=== PATIENT | male | born 2000 | race Caucasian/White ===

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

== ENCOUNTER 2022-04-18 21:03 | Emergency (ER) | payer OTHER ==
[~2022-04-18] VITALS: Ht 175.3 cm; Wt 70.3 kg
[~2022-04-18 21:03] MED LIST changes: +GENTAMICIN SULF15 G2 TOP
[2022-04-18] MEDS ORDERED: BACITRACIN28.4 GM TOP (21:49)
[2022-04-18] MEDS ORDERED: LEVOFLOXACIN500 MG PO (21:49)
== END 2022-04-18 22:20 | disposition home or self-care (01) ==
LOC: ED 21:03
PROC: 2W2MX4Z Dressing of Left Lower Extremity using Bandage (ICD-10-PCS; principal; 2022-04-18)
DX: T24.232A Burn of second degree of left lower leg, initial encounter (principal); T31.0 Burns involving less than 10% of body surface; E03.9 Hypothyroidism, unspecified; Z23 Encounter for immunization; Z79.899 Other long term (current) drug therapy; X08.8XXA Exposure to other specified smoke, fire and flames, initial encounter
CPT/HCPCS: 90471; 90715; 99283

== ENCOUNTER 2022-04-21 10:55 | Emergency (ER) | payer OTHER ==
[~2022-04-21] VITALS: Ht 180.3 cm; Wt 68.3 kg
[~2022-04-21 10:55] MED LIST changes: +BACITRACIN28.4 GM TOP; +LEVOFLOXACIN500 MG PO
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
== END 2022-04-21 15:07 | disposition home or self-care (01) ==
LOC: ED 10:55
DX: S09.90XA Unspecified injury of head, initial encounter (principal); S16.1XXA Strain of muscle, fascia and tendon at neck level, initial encounter; E03.9 Hypothyroidism, unspecified; Z79.899 Other long term (current) drug therapy; V89.2XXA Person injured in unspecified motor-vehicle accident, traffic, initial encounter
CPT/HCPCS: 70450; 72125; 99284-25

== ENCOUNTER 2023-01-26 08:27 | Emergency (ER) | payer OTHER ==
[~2023-01-26] VITALS: Ht 180.3 cm; Wt 74.8 kg
[2023-01-26] MEDS ORDERED: ONDANSETRON ODT4 MG PO (09:03)
[2023-01-26 09:18] VITALS: BP 118/88
== END 2023-01-26 09:17 | disposition home or self-care (01) ==
LOC: ED 08:27
DX: S06.0X0A Concussion without loss of consciousness, initial encounter (principal); V89.2XXA Person injured in unspecified motor-vehicle accident, traffic, initial encounter
CPT/HCPCS: 99283; A9270

== ENCOUNTER 2024-03-19 14:30 | Emergency (ER) | payer OTHER ==
[~2024-03-19] VITALS: Ht 180.3 cm; Wt 67.6 kg
[~2024-03-19 14:30] MED LIST changes: +ONDANSETRON ODT4 MG PO
[2024-03-19 15:32] LABS: BASOPHILS 0.7 % (0-2); EOSINOPHILS 3.6 % (0-6); HEMATOCRIT 42.2 % (35.0-50.0); HEMOGLOBIN 14.1 g/dL (12.0-18.0); LYMPHOCYTES 24.2 % (24-44); MCH 28.4 (27-36); MCHC 33.5 g/dl (30-36); MCV 84.8 fl (81-99); NEUTROPHILS 64.5 % (39-80); PLATELET COUNT 232 K/uL (140-440); RBC 4.97 M/ul (4.3-5.7); RDW 13.3 (10.5-15.0)
[2024-03-19 15:49] LABS: ALBUMIN 3.8 g/dL (3.4-5.0); ALBUMIN/GLOBULIN RATIO 1.15 (1.1-2.4); ALKALINE PHOSPHATASE 78 U/L (46-116); ALT (SGPT) 12 U/L (14-59); AST (SGOT) 10 U/L (15-37); BILIRUBIN, TOTAL 0.6 ng/dL (0.2-1.0); BUN/CREATININE RATIO 11.95 (6.0-28.6); CALCIUM 8.9 mg/dL (8.5-10.1); CARBON DIOXIDE 27 mmol/L (21-32); CHLORIDE 105 mmol/L (98-107); CREATININE, SERUM 0.92 mg/dL (0.70-1.30); GLOMERULAR FILTRATION RATE,EST 121 mL/min (>60); PROTEIN, TOTAL 7.1 g/dL (6.4-8.2); UREA NITROGEN 11 mg/dL (7-18)
[2024-03-19 16:16] VITALS: BP 116/69
--- NOTE | 2024-03-20 16:40 | EKG ---
[facility] [address] [facility] [place] [address] Signed Sinus rhythm with marked sinus arrhythmia Incomplete right bundle branch block Possible Right ventricular hypertrophy Abnormal ECG No previous ECGs available Confirmed by Fernandez Gutiérrez MD ([id number]) on 03/20/2024 4:39:59 PM Electronically Signed By: FERNANDEZ GUTIÉRREZ MD 03/20/24 1640 PATIENT NAME: BILL LAY JAABRI Electrocardiogram DATE OF : [birth year] PHYSICIAN: FERNANDEZ GUTIÉRREZ MD REPORT #: [id number] REPORT IS CONFIDENTIAL AND NOT TO BE RELEASED WITHOUT AUTHORIZATION
== END 2024-03-19 16:16 | disposition home or self-care (01) ==
LOC: ED 14:30
PROVIDERS: Emergency Medicine
DX: R07.89 Other chest pain (principal); E03.9 Hypothyroidism, unspecified; Z79.890 Hormone replacement therapy
CPT/HCPCS: 36415; 71045; 80053; 84484; 85025; 85379; 93005; 93010; 99285-25

== ENCOUNTER 2024-04-10 09:46 | Emergency (ER) | payer OTHER ==
[~2024-04-10] VITALS: Ht 180.3 cm; Wt 67.6 kg
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
[2024-04-10 10:34] VITALS: BP 125/75
== END 2024-04-10 10:34 | disposition home or self-care (01) ==
LOC: ED 09:46
DX: S67.22XA Crushing injury of left hand, initial encounter (principal); W23.0XXA Caught, crushed, jammed, or pinched between moving objects, initial encounter; E03.9 Hypothyroidism, unspecified; Z79.890 Hormone replacement therapy
CPT/HCPCS: 73130; 99283

== ENCOUNTER 2024-04-24 07:40 | Emergency (ER) | payer OTHER ==
[~2024-04-24] VITALS: Ht 180.3 cm; Wt 69.9 kg
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
[2024-04-24] MEDS ORDERED: LEVOTHYROXINE50 MCG PO (07:53)
[2024-04-24] MEDS ORDERED: LEVOTHYROXINE200 MCG PO (07:53)
[2024-04-24 08:20] LABS: BASOPHILS 0.7 % (0-2); EOSINOPHILS 2.6 % (0-6); HEMOGLOBIN 14.1 g/dL (12.0-18.0); LYMPHOCYTES 28.3 % (24-44); MCH 28.3 (27-36); MCHC 33.6 g/dl (30-36); MCV 84.1 fl (81-99); MONOCYTES 9.4 % (0-12); PLATELET COUNT 220 K/uL (140-440)
[2024-04-24 08:43] LABS: ALBUMIN 3.6 g/dL (3.4-5.0); ALBUMIN/GLOBULIN RATIO 1.13 (1.1-2.4); ALKALINE PHOSPHATASE 88 U/L (46-116); ALT (SGPT) 15 U/L (14-59); AST (SGOT) 13 U/L (15-37); BILIRUBIN, TOTAL 0.8 ng/dL (0.2-1.0); BUN/CREATININE RATIO 16.66 (6.0-28.6); CALCIUM 9.3 mg/dL (8.5-10.1); CARBON DIOXIDE 26 mmol/L (21-32); CHLORIDE 107 mmol/L (98-107); CREATININE, SERUM 0.72 mg/dL (0.70-1.30); GLOMERULAR FILTRATION RATE,EST 133 mL/min (>60); PROTEIN, TOTAL 6.8 g/dL (6.4-8.2); UREA NITROGEN 12 mg/dL (7-18)
[2024-04-24 09:02] VITALS: BP 114/65
--- NOTE | 2024-04-24 15:27 | EKG ---
[facility] [address] [facility] [place] [address] Signed Sinus rhythm with marked sinus arrhythmia Rightward axis Incomplete right bundle branch block Borderline ECG When compared with ECG of 19-MAR-2024 14:34, No significant change was found Confirmed by Bryant Rowe MD () on 04/24/2024 3:27:13 PM Electronically Signed By: BRYANT ROWE MD 04/24/24 1527 PATIENT NAME: BILL LAY JABARI Electrocardiogram DATE OF : [birth year] PHYSICIAN: BRYANT ROWE MD REPORT #: [id number] REPORT IS CONFIDENTIAL AND NOT TO BE RELEASED WITHOUT AUTHORIZATION
== END 2024-04-24 09:04 | disposition home or self-care (01) ==
LOC: ED 07:40
PROVIDERS: Emergency Medicine
DX: R07.89 Other chest pain (principal); M54.12 Radiculopathy, cervical region; E03.9 Hypothyroidism, unspecified; Z88.8 Allergy status to other drugs, medicaments and biological substances; Z79.890 Hormone replacement therapy
CPT/HCPCS: 36415; 80053; 84484; 85025; 93005; 93010; 99285

== ENCOUNTER 2024-05-02 07:51 | Emergency (ER) | payer OTHER ==
[~2024-05-02] VITALS: Ht 180.3 cm; Wt 64.9 kg
[~2024-05-02 07:51] MED LIST changes: +LEVOTHYROXINE200 MCG PO; +LEVOTHYROXINE50 MCG PO
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
[2024-05-02] MEDS ORDERED: ondansetron HCL 4 MG TAB PO ONE (08:45)
[2024-05-02] MEDS ORDERED: NAPROSYN500 MG PO (09:54)
[2024-05-02 10:00] VITALS: BP 111/61
== END 2024-05-02 10:00 | disposition home or self-care (01) ==
LOC: ED 07:51
DX: S06.0XAA Concussion with loss of consciousness status unknown, initial encounter (principal); S16.1XXA Strain of muscle, fascia and tendon at neck level, initial encounter; W11.XXXA Fall on and from ladder, initial encounter; E03.9 Hypothyroidism, unspecified; Z79.890 Hormone replacement therapy; Z88.8 Allergy status to other drugs, medicaments and biological substances
CPT/HCPCS: 70450; 72125; 99284-25; A9270

== ENCOUNTER 2024-06-21 23:44 | Emergency (ER) | payer OTHER ==
[~2024-06-21] VITALS: Ht 180.3 cm; Wt 66.0 kg
[~2024-06-21 23:44] MED LIST changes: +NAPROSYN500 MG PO
[2024-06-22 00:31] VITALS: BP 122/73
== END 2024-06-22 00:20 | disposition home or self-care (01) ==
LOC: ED 23:44
DX: S51.812A Laceration without foreign body of left forearm, initial encounter (principal); Z88.8 Allergy status to other drugs, medicaments and biological substances; X58.XXXA Exposure to other specified factors, initial encounter
CPT/HCPCS: 99282

== ENCOUNTER 2024-06-28 00:50 | Emergency (ER) | payer OTHER ==
[~2024-06-28] VITALS: Ht 180.3 cm; Wt 70.7 kg
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
[2024-06-28 01:21] LABS: BASOPHILS 0.7 % (0-2); EOSINOPHILS 1.2 % (0-6); HEMATOCRIT 39.9 % (35.0-50.0); HEMOGLOBIN 13.9 g/dL (12.0-18.0); MCH 28.1 (27-36); MCHC 34.8 g/dl (30-36); MCV 80.8 fl (81-99); MONOCYTES 8.4 % (0-12); NEUTROPHILS 60.7 % (39-80); PLATELET COUNT 226 K/uL (140-440); RBC 4.93 M/ul (4.3-5.7); RDW 13.2 (10.5-15.0)
[2024-06-28] MEDS ORDERED: LACTATED RINGER'S 1,000 ML IV ONE (01:45)
[2024-06-28 01:51] LABS: ALBUMIN 3.8 g/dL (3.4-5.0); ALBUMIN/GLOBULIN RATIO 1.15 (1.1-2.4); ALKALINE PHOSPHATASE 92 U/L (46-116); ALT (SGPT) 16 U/L (14-59); ANION GAP 10.6 (7-21); AST (SGOT) 13 U/L (15-37); BILIRUBIN, TOTAL 1.1 mg/dL (0.2-1.0); BUN/CREATININE RATIO 10.37 (6.0-28.6); CALCIUM 8.8 mg/dL (8.5-10.1); CARBON DIOXIDE 28 mmol/L (21-32); CHLORIDE 105 mmol/L (98-107); CREATININE, SERUM 1.06 mg/dL (0.70-1.30); GLOMERULAR FILTRATION RATE,EST 102 mL/min (>60); POTASSIUM 3.6 mmol/L (3.5-5.1); PROTEIN, TOTAL 7.1 g/dL (6.4-8.2); UREA NITROGEN 11 mg/dL (7-18)
[2024-06-28] MEDS ORDERED: SODIUM CHLORIDE 0.9% 1,000 ML IV PRN (02:00)
[2024-06-28 03:29] VITALS: BP 97/60
--- NOTE | 2024-06-28 10:39 | EKG ---
[facility] [address] [facility] [place] [address] Signed Sinus rhythm with marked sinus arrhythmia Rightward axis Incomplete right bundle branch block Borderline ECG When compared with ECG of 24-APR-2024 07:43, No significant change was found Confirmed by Elías Mathews DO ([id number]) on 06/28/2024 10:39:20 AM Electronically Signed By: ELÍAS MATHEWS DO 06/28/24 1039 PATIENT NAME: BILL LAY JABARI Electrocardiogram DATE OF : [birth year] PHYSICIAN: ELÍAS MATHEWS DO REPORT #: [id number] REPORT IS CONFIDENTIAL AND NOT TO BE RELEASED WITHOUT AUTHORIZATION
[2024-06-29 18:49] LABS: THYROXINE FREE 1.3 ng/dL (0.9-1.7)
[2024-06-30 08:30] LABS: TRIIODOTHYRONINE,FREE FREE T3 2.8 pg/mL (2.5-4.3)
[2024-06-30 09:26] LABS: THYROXINE 6.99 ug/dL (4.50-11.70)
== END 2024-06-28 03:20 | disposition home or self-care (01) ==
LOC: ED 00:50
PROVIDERS: Internal Medicine
DX: R55 Syncope and collapse (principal); E03.9 Hypothyroidism, unspecified; I45.10 Unspecified right bundle-branch block; Z79.899 Other long term (current) drug therapy; Z88.8 Allergy status to other drugs, medicaments and biological substances
CPT/HCPCS: 36415; 70450; 70486; 71045; 72125; 73060; 73090; 80053; 80307; 84436; 84439; 84443; 84481; 84484; 85025; 93005; 93010; 99285-25; J7030

== ENCOUNTER 2024-07-21 | Emergency (ER) | payer OTHER ==
[~2024-07-21] VITALS: Ht 180.3 cm; Wt 69.5 kg
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
[2024-07-21 00:27] LABS: BASOPHILS 0.8 % (0-2); EOSINOPHILS 2.4 % (0-6); HEMATOCRIT 38.6 % (35.0-50.0); HEMOGLOBIN 13.4 g/dL (12.0-18.0); MCH 28.7 (27-36); MCHC 34.7 g/dl (30-36); MCV 82.7 fl (81-99); MONOCYTES 7.5 % (0-12); NEUTROPHILS 59.3 % (39-80); PLATELET COUNT 237 K/uL (140-440); RBC 4.67 M/ul (4.3-5.7); RDW 14.6 (10.5-15.0)
[2024-07-21 00:48] LABS: ALBUMIN 3.8 g/dL (3.4-5.0); ALBUMIN/GLOBULIN RATIO 1.27 (1.1-2.4); ANION GAP 12.6 (7-21); BILIRUBIN, TOTAL 1.1 mg/dL (0.2-1.0); BUN/CREATININE RATIO 16.51 (6.0-28.6); CALCIUM 8.8 mg/dL (8.5-10.1); CREATININE, SERUM 1.09 mg/dL (0.70-1.30); MAGNESIUM 2.1 mg/dL (1.8-2.4); POTASSIUM 3.6 mmol/L (3.5-5.1); PROTEIN, TOTAL 6.8 g/dL (6.4-8.2)
[2024-07-21] MEDS ORDERED: KETOROLAC TROMETHAMINE 30 MG/ML VIAL IV ONE (01:00)
[2024-07-21 03:34] VITALS: BP 100/55
--- NOTE | 2024-07-22 20:43 | EKG ---
[facility] [address] [facility] [place] [address] Signed Normal sinus rhythm with sinus arrhythmia Possible Left atrial enlargement Rightward axis Incomplete right bundle branch block Borderline ECG When compared with ECG of 28-JUN-2024 00:50, No significant change was found Confirmed by Bryant Rowe MD () on 07/22/2024 8:42:51 PM Electronically Signed By: BRYANT ROWE MD 07/22/242042 PATIENT NAME: BILL LAY Electrocardiogram DATE OF : [birth year] PHYSICIAN: BRYANT ROWE MD REPORT #: [id number] REPORT IS CONFIDENTIAL AND NOT TO BE RELEASED WITHOUT AUTHORIZATION
== END 2024-07-21 03:35 | disposition home or self-care (01) ==
LOC: ED
PROVIDERS: Internal Medicine
DX: R09.1 Pleurisy (principal)
CPT/HCPCS: 36415; 71045; 80053; 83735; 84484; 85025; 85379; 93005; 93010; 96374; 99285-25; J1885

== ENCOUNTER 2024-10-13 01:30 | Emergency (ER) | payer OTHER ==
[~2024-10-13] VITALS: Ht 180.3 cm; Wt 70.0 kg
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
[2024-10-13] MEDS ORDERED: ACETAMINOPHEN 325 MG TAB PO ONE (01:45)
[2024-10-13] MEDS ORDERED: IBUPROFEN 600 MG TAB PO ONE (01:45)
[2024-10-13 02:05] LABS: BASOPHILS 0.9 % (0.2-1.2); EOSINOPHILS 1.8 % (0.8-7.0); LYMPHOCYTES 36.7 % (21.8-53.1); MCH 28.8 PG (25.7-32.2); MCHC 33.9 g/dL (32.3-36.5); MCV 84.8 fL (79.0-92.2); MONOCYTES 6.2 % (5.3-12.2); NEUTROPHILS 54.1 % (34.0-67.9); RBC 4.55 M/uL (4.63-6.08)
[2024-10-13 02:20] LABS: ALT (SGPT) 37.0 U/L (14-59); AST (SGOT) 34.0 U/L (15-37); GLOMERULAR FILTRATION RATE,EST 78.0 mL/min (>60); PROTEIN, TOTAL 7.2 g/dL (6.4-8.2); UREA NITROGEN 16.0 mg/dL (7-18)
[2024-10-13 03:03] VITALS: BP 103/54
== END 2024-10-13 03:03 | disposition home or self-care (01) ==
LOC: ED 01:30
PROVIDERS: Family Medicine
DX: S31.133A Puncture wound of abdominal wall without foreign body, right lower quadrant without penetration into peritoneal cavity, initial encounter (principal); E03.9 Hypothyroidism, unspecified; Z88.8 Allergy status to other drugs, medicaments and biological substances; Z79.890 Hormone replacement therapy; W45.8XXA Other foreign body or object entering through skin, initial encounter
CPT/HCPCS: 36415; 74018; 80053; 85025; 99284; A9270

== ENCOUNTER 2024-12-06 22:22 | Emergency (ER) | payer OTHER ==
[~2024-12-06] VITALS: Ht 210.8 cm; Wt 66.9 kg
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
[2024-12-06] MEDS ORDERED: ESCITALOPRAM OX10 MG PO (22:56)
[2024-12-07 00:38] LABS: BASOPHILS 0.7 % (0.2-1.2); EOSINOPHILS 0.8 % (0.8-7.0); LYMPHOCYTES 27.4 % (21.8-53.1); MCH 29.1 PG (25.7-32.2); MCHC 34.1 g/dL (32.3-36.5); MCV 85.4 fL (79.0-92.2); MONOCYTES 5.5 % (5.3-12.2); NEUTROPHILS 65.4 % (34.0-67.9); RBC 4.85 M/uL (4.63-6.08)
[2024-12-07 00:56] LABS: ALT (SGPT) 17.0 U/L (14-59); AST (SGOT) 15.0 U/L (15-37); GLOMERULAR FILTRATION RATE,EST 98.0 mL/min (>60); PROTEIN, TOTAL 7.4 g/dL (6.4-8.2); UREA NITROGEN 9.0 mg/dL (7-18)
[2024-12-07 02:11] VITALS: BP 110/67
== END 2024-12-07 02:11 | disposition home or self-care (01) ==
LOC: ED 22:22
PROVIDERS: Emergency Medicine
DX: S20.212A Contusion of left front wall of thorax, initial encounter (principal); E03.9 Hypothyroidism, unspecified; Y04.2XXA Assault by strike against or bumped into by another person, initial encounter; Z88.8 Allergy status to other drugs, medicaments and biological substances; Z79.890 Hormone replacement therapy; Z79.899 Other long term (current) drug therapy
CPT/HCPCS: 36415; 71045; 74177; 80053; 83690; 85025; 99284-25

== ENCOUNTER 2025-01-08 08:27 | Emergency (ER) | payer OTHER ==
[~2025-01-08] VITALS: Ht 210.8 cm; Wt 69.0 kg
[~2025-01-08 08:27] MED LIST changes: +ESCITALOPRAM OX10 MG PO
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
[2025-01-08] MEDS ORDERED: KETOROLAC TROMETHAMINE 15 MG/ML VIAL IV ONE (09:00)
[2025-01-08] MEDS ORDERED: KETOROLAC TROMETHAMINE 15 MG/ML VIAL IM ONE (09:15)
[2025-01-08 10:07] VITALS: BP 111/74
--- NOTE | 2025-01-09 07:41 | EKG ---
[facility] [address] [address] [place] [address] Signed Normal sinus rhythm with sinus arrhythmia Pulmonary disease pattern Incomplete right bundle branch block Possible Right ventricular hypertrophy Abnormal ECG When compared with ECG of 21-JUL-2024 00:08, No significant change was found Confirmed by Elías Mathews DO ([id number]) on 01/09/2025 7:40:58 AM Electronically Signed By: ELÍAS MATHEWS DO 01/09/25 0741 PATIENT NAME: BILL LAY JABARI Electrocardiogram DATE OF : 4 PHYSICIAN: ELÍAS MATHEWS DO REPORT #: [id number] REPORT IS CONFIDENTIAL AND NOT TO BE RELEASED WITHOUT AUTHORIZATION
== END 2025-01-08 10:08 | disposition home or self-care (01) ==
LOC: ED 08:27
DX: R07.89 Other chest pain (principal); Z79.899 Other long term (current) drug therapy
CPT/HCPCS: 71046; 93005; 93010; 96372; 99285-25; J1885